=== PATIENT | male | born 1990 | race Caucasian/White ===

== ENCOUNTER 2024-12-31 23:25 | Emergency (ER) | payer SELFPAY ==
[~2024-12-31] VITALS: Ht 172.7 cm; Wt 82.0 kg
[2024-12-31 23:27] VITALS: TEMP 35.6; O2SAT 100
[2024-12-31] MEDS ORDERED: BACITRACIN 14GM TUBE TOP ONE (23:30)
[2025-01-01 00:24] LABS: BASOPHILS % 0.2 % (0.0-2.0); EOSINOPHILS % 0.4 % (0.0-5.0); HEMATOCRIT. 40.2 % (42.0-52.0); HEMOGLOBIN. 13.9 g/dL (14.0-18.0); LYMPHOCYTES % 10.6 % (20.0-50.0); MEAN CORPUSCULAR HEMOGLOBIN 29.1 pg (28.0-32.0); MEAN CORPUSCULAR HGB CONC 34.6 g/dL (31.0-37.0); MEAN PLATELET VOLUME 7.2 fl (7.4-10.4); MONOCYTES % 2.2 % (2.0-8.0); NEUTROPHILS % 86.6 % (40.0-76.0); PLATELET 298 x1000/uL (130-400); RED BLOOD CELL COUNT 4.78 mill/uL (4.7-6.1); RED CELL DISTRIBUTION WIDTH 14.4 % (11.6-14.6); WHITE BLOOD COUNT 10.6 x1000/uL (4.5-11.0)
[2025-01-01 00:30] LABS: CHLORIDE 104 mEq/L (98-107); POTASSIUM 3.3 mEq/L (3.5-5.1); SODIUM 140 mEq/L (136-145)
[2025-01-01 00:31] LABS: CALCIUM 9.1 mg/dL (8.7-10.4); CARBON DIOXIDE 21 mEq/L (21-32)
[2025-01-01 00:36] LABS: CREATININE 0.7 mg/dL (0.6-1.3); GLUCOSE 87 mg/dL (70-105); UREA NITROGEN BLOOD 16 mg/dL (9-23)
[2025-01-01 00:38] LABS: ACETAMINOPHEN < 2 ug/mL (10-30); AMMONIA < 17 uMol/L (<32)
[2025-01-01 00:45] LABS: ETHANOL BLOOD 292 mg/dL (<10)
[2025-01-01] MEDS: BACITRACIN ZINC OINT UDPKT TOP NR (00:45)
[2025-01-01] MEDS: SODIUM CHLORIDE 0.9% 1,000 ML IV ONE (00:49)
[2025-01-01] MEDS: TETANUS, DIPHTHERIA, PERTUSSIS VAC/PF 0.5ML (>10YR OLD) IM ONE (00:49)
[2025-01-01] MEDS: POTASSIUM CHLORIDE 20MEQ/PACKET PO NR (01:55)
[2025-01-01] MEDS: LIDOCAINE HCL/PF 1% 10 MG/ML 5ML VIAL INFIL ONE (01:58)
[2025-01-01 05:07] VITALS: BP 99/63; PULSE 95; RESP 20; O2SAT 98
== END 2025-01-01 05:13 | disposition home or self-care (01) ==
LOC: ER 23:25
DX: S51.811A Laceration without foreign body of right forearm, initial encounter (principal); F10.129 Alcohol abuse with intoxication, unspecified; R45.1 Restlessness and agitation; Y90.9 Presence of alcohol in blood, level not specified; Z79.899 Other long term (current) drug therapy; X58.XXXA Exposure to other specified factors, initial encounter; Y93.89 Activity, other specified; Y92.89 Other specified places as the place of occurrence of the external cause; Y99.8 Other external cause status
CPT/HCPCS: 80048; 80307; 80329; 80320; 82140; 83690; 85025; 36415; 73090; 12001; 99285; 82962; 90715; 90471; 96360; J7030; J2003; Z7610 ×2; 99284; G0480